=== PATIENT | female | born 2000 | race Caucasian/White ===

== ENCOUNTER 2020-08-21 15:01 | Emergency (ER) | payer BC, SELFPAY ==
[2020-08-21 15:09] VITALS: BP 94/69; PULSE 64; RESP 16; TEMP 36.8; O2SAT 99
--- NOTE | 2020-08-21 15:29 | ED.GENADULT ---
HPI - General Adult General Chief complaint: Unspecified Stated complaint: need fingernail pulled off Time Seen by Provider: 08/21/20 15:04 History of Present Illness HPI narrative: Broken finger nail. Broke the right middle finger nail reaching into her wallet last night. Broken below the nail bed. She tried to clip the rest and remove the nail, but had too much pain. Related Data Home Medications Medication Instructions Recorded Confirmed No Home Medications 08/21/20 08/21/20 Allergies Allergy/AdvReac Type Severity Reaction Status Date / Time No Known Allergies Allergy Verified 08/21/20 15:13 Review of Systems Review of Systems: All systems reviewed & are unremarkable except as noted in HPI and below PMFSH Social History Social History Smoking status: Never smoker Exam Const: General: healthy appearing, no acute distress and alert Orientation/consciousness: patient oriented x3 HENMT: Head: normal to inspection Neck: Neck: normal visual inspection Resp: Effort & Inspection: normal respiratory effort Cardio: Other: 2+ right radial Skin: Other: partial break of right middle finger nail below the nail bed Neuro: General: patient oriented x3 and moves all extremities Speech: normal speech Extrem: General: no edema Psych: Appearance: well kempt Affect: normal affect Course Vital Signs Vital signs: Vital Signs Temperature 36.8 C 08/21/20 15:09 Pulse Rate 64 08/21/20 15:09 Respiratory Rate 16 08/21/20 15:09 Blood Pressure 94/69 L 08/21/20 15:09 Pulse Oximetry 99 08/21/20 15:09 Temperature 36.8 C 08/21/20 15:09 Pulse Rate 64 08/21/20 15:09 Respiratory Rate 16 08/21/20 15:09 Blood Pressure 94/69 L 08/21/20 15:09 Pulse Oximetry 99 08/21/20 15:09 Procedures Other Procedure Procedure 1: Other Procedure: FInger tourniquet was placed on the right middle finger. 1 ml 1% lidocaine was injected under the nail bed. scissors were then used to complete removal of the distal finger nail. Medical Decision Making Vital Signs Vital Signs: Vital Signs Temperature 36.8 C 08/21/20 15:09 Pulse Rate 64 08/21/20 15:09 Respiratory Rate 16 08/21/20 15:09 Blood Pressure 94/69 L 08/21/20 15:09 Pulse Oximetry 99 08/21/20 15:09 Temperature 36.8 C 08/21/20 15:09 Pulse Rate 64 08/21/20 15:09 Respiratory Rate 16 08/21/20 15:09 Blood Pressure 94/69 L 08/21/20 15:09 Pulse Oximetry 99 08/21/20 15:09 Discharge Plan Discharge Clinical Impression: Nail avulsion, finger Patient Disposition: Home, Self-Care Condition: Stable Instructions: Nail Avulsion (ED) Prescriptions: No Action No Home Medications RF: 0 Follow-up/Referrals: PHYSICIAN NOT ON STAFF,NONSTAFF [Primary Care Provider] -
== END 2020-08-21 16:18 | disposition home or self-care (01) ==
PROVIDERS: Emergency Provider Emergency Medicine
DX: S61.302A Unspecified open wound of right middle finger with damage to nail, initial encounter (principal); W22.8XXA Striking against or struck by other objects, initial encounter
CPT/HCPCS: 11730; 11740; 99282

== ENCOUNTER 2022-07-07 11:37 | Emergency (ER) | payer BC, SELFPAY ==
--- NOTE | ~2022-07-07 | XR_ITS ---
EXAMINATION: XR ribs BI 3V w CXR 2V DATE: 07/07/2022 12:49 INDICATION: Chest injury and pain. TECHNIQUE: Frontal and lateral views of the chest and 2 views on 3 radiographs of the right ribs and 2 views on 3 radiographs of the of the left ribs were obtained. COMPARISON: None. FINDINGS: CHEST TWO VIEWS: A calcified right lung nodule is consistent with old granulomatous disease. No pleur al effusion or pneumothorax. The heart size is normal. BILATERAL RIBS: There is no rib fracture. IMPRESSION: 1. No rib fracture. Reviewed, dictated and finalized at location A. IMPRESSION: 1. No rib fracture.
[2022-07-07 11:40] VITALS: BP 127/89; PULSE 74; RESP 16; TEMP 36.4; O2SAT 100
--- NOTE | 2022-07-07 12:36 | ED.FALL ---
HPI - Fall General Chief Complaint: Fall <Clemencia Francis APRN - Last Filed: 07/07/22 14:08> Stated Complaint: fall <Clemencia Francis APRN - Last Filed: 07/07/22 14:08> Time Seen by Provider: 07/07/22 11:56 <Clemencia Francis APRN - Last Filed: 07/07/22 14:08> Source: patient <Clemencia Francis APRN - Last Filed: 07/07/22 14:08> Mode of arrival: ambulatory <Clemencia Francis APRN - Last Filed: 07/07/22 14:08> Limitations: no limitations <Clemencia Francis APRN - Last Filed: 07/07/22 14:08> History of Present Illness HPI Narrative: 21-year-old female presents today with complaints of right upper rib pain and left lower rib pain status post fall from a golf cart about 1 week ago. Patient states they were taking a turn when the golf cart tipped a little bit and she fell off landing in the dirt on her chest. Patient states that she thought that the pain would go away but it has not. Patient does lift heavy objects at work and had a hard time yesterday. Has only taken about 600 mg of ibuprofen once today with relief. Pain with inspiration to right upper and left lower chest wall. Pain with lifting heavy objects. Pain to right upper chest with movement of right shoulder. No obvious deformities noted. <Clemencia Francis APRN - Last Filed: 07/07/22 14:08> Onset (ago): week(s) (1) <Clemencia Francis APRN - Last Filed: 07/07/22 14:08> Symptoms prior to fall: none <Clemencia Francis APRN - Last Filed: 07/07/22 14:08> Related Data Allergies/Adverse Reactions: Allergies Allergy/AdvReac Type Severity Reaction Status Date / Time No Known Allergies Allergy Verified 07/07/22 11:47 <Clemencia Francis APRN - Last Filed: 07/07/22 14:08> Review of Systems Review of Systems: CONSTITUTIONAL: Denies fever, chills, or sweats. EYES: Denies visual changes, redness, or discharge. ENT: Denies rhinorrhea, congestion, sore throat, or otalgia. CARDIOVASCULAR: Right upper chest wall and left lower chest rib pain with certain movements and inspiration. Denies palpitations, or edema. RESPIRATORY: Denies cough or dyspnea. MUSCULOSKELETAL: Right shoulder pain. Denies back pain or myalgia. <Clemencia LettyJerad Penny Last Filed: 07/07/22 14:08> [facility] Social History Social History: Social History Smoking status: Never smoker <Clemencia LettyJerad Penny Last Filed: 07/07/22 14:08> Exam Const: General: cooperative, no acute distress, alert and awake <Clemencia Francis Last Filed: 07/07/22 14:08> Orientation/consciousness: oriented to person, oriented to place, oriented to time and patient oriented x3 <Clemencia A. Last Filed: 07/07/22 14:08> Neck: Neck: normal visual inspection, full ROM, no lymphadenopathy and trachea midline <Clemencia LettyJerad Last Filed: 07/07/22 14:08> Chest: Chest palpation & inspection: normal inspection of the chest and tenderness rib (Right upper below clavicle, left lower side rib) <Clemencia LettyJerad Penny Last Filed: 07/07/22 14:08> Resp: Effort & Inspection: normal respiratory effort and able to speak in complete sentences <Clemencia A. Last Filed: 07/07/22 14:08> Auscultation: clear to auscultation bilaterally <Clemencia A. Last Filed: 07/07/22 14:08> Cardio: Rate: regular rate <Clemencia Le Last Filed: 07/07/22 14:08> Rhythm: regular rhythm <Clemencia Francis Last Filed: 07/07/22 14:08> Heart sounds: S1 normal heart sound present and S2 normal heart sound present <Clemencia Francis Last Filed: 07/07/22 14:08> Skin: General skin exam: normal color and no rashes or lesions noted <Clemencia Francis APRN - Last Filed: 07/07/22 14:08> Neuro: General: oriented to person, oriented to place, oriented to time and patient oriented x3 <Clemencia Francis APRN - Last Filed: 07/07/22 14:08> Cranial nerves: Yes Equal, round and reactive pupils present <Clemencia Le
== END 2022-07-07 13:36 | disposition home or self-care (01) ==
PROVIDERS: Emergency Provider Nurse Practitioner Family
DX: S29.011A Strain of muscle and tendon of front wall of thorax, initial encounter (principal); V86.99XA Unspecified occupant of other special all-terrain or other off-road motor vehicle injured in nontraffic accident, initial encounter
CPT/HCPCS: 71046; 71110; 99283

== ENCOUNTER 2024-04-23 08:14 | Emergency (ER) | payer BC, SELFPAY ==
[2024-04-23 08:28] VITALS: BP 114/67; PULSE 69; RESP 18; TEMP 36.7; O2SAT 97
[2024-04-23 09:02] VITALS: O2SAT 98
[2024-04-23 09:21] LABS: Influenza A QL RT-PCR Negative (Negative); Influenza B QL RT-PCR Negative (Negative); RSV RNA, RT-PCR Negative (Negative); SARS-CoV-2 RNA PCR Negative (Negative)
--- NOTE | 2024-04-23 09:28 | ED.GENADULT ---
HPI - General Adult General Chief complaint: Upper Respiratory Infection Stated complaint: went to last week URI symptoms still not better Time Seen by Provider: 04/23/24 08:34 History of Present Illness HPI narrative: Patient is a 23-year-old female who presents ER with cold symptoms for 1 week. Has had negative viral testing and urgent care. She has sinus congestion sore throat or productive cough. Fevers and chills improved. No vomiting. Patient is concerned she could have pneumonia as she had is a child. Related Data Allergies Allergy/AdvReac Type Severity Reaction Status Date / Time No Known Allergies Allergy Verified 04/23/24 08:16 Review of Systems Constitutional: Constitutional: Reports no additional constitutional complaints ENT: Reports system reviewed and no additional complaints, except as documented Cardiovascular: Cardiovascular: Reports no additional cardiovascular complaints Respiratory: Respiratory: Reports no additional respiratory complaints PMF Past Medical History Medical History (Updated 04/23/24 @ 09:34 by Srinath Hunter MD) Healthy female adult Surgical History Surgical History (Updated 04/23/24 @ 09:29 by Srinath Hunter MD) History of appendectomy Social History Social History Smoking status: Never smoker Exam Narrative: GENERAL: Well-appearing, well-nourished, and in no acute distress. HEAD: Normocephalic, atraumatic. ENT: Mucous membranes moist. CHEST: Clear to auscultation. No respiratory distress. HEART: Regular rate and rhythm. Normal peripheral pulses. EXTREMITIES: Normal range of motion. No edema. NEURO: Alert and oriented x3. PSYCH: Normal mood and affect. Course Course Emergency Course: Patient resting comfortably. Informed results. Discharge home. Vital Signs Vital signs: Vital Signs Temperature 98.1 F 04/23/24 08:28 Pulse Rate 69 04/23/24 08:28 Respiratory Rate 18 04/23/24 08:28 Blood Pressure 114/67 04/23/24 08:28 Pulse Oximetry 97 04/23/24 08:28 Oxygen Delivery Room Air 04/23/24 08:28 Temperature 98.1 F 04/23/24 08:28 Pulse Rate 69 04/23/24 08:28 Respiratory Rate 18 04/23/24 08:28 Blood Pressure 114/67 04/23/24 08:28 Pulse Oximetry 98 04/23/24 09:02 Oxygen Delivery Room Air 04/23/24 09:02 Medical Decision Making Vital Signs Vital Signs: Vital Signs Temperature 98.1 F 04/23/24 08:28 Pulse Rate 69 04/23/24 08:28 Respiratory Rate 18 04/23/24 08:28 Blood Pressure 114/67 04/23/24 08:28 Pulse Oximetry 97 04/23/24 08:28 Oxygen Delivery Room Air 04/23/24 08:28 Temperature 98.1 F 04/23/24 08:28 Pulse Rate 69 04/23/24 08:28 Respiratory Rate 18 04/23/24 08:28 Blood Pressure 114/67 04/23/24 08:28 Pulse Oximetry 98 04/23/24 09:02 Oxygen Delivery Room Air 04/23/24 09:02 Lab Data Labs: Lab Results 04/23/24 Range/Units 08:39 Influenza A (RT-PCR) Negative (Negative) Influenza B (RT-PCR) Negative (Negative) RSV (RT-PCR) Negative (Negative) SARS-CoV-2 RNA (RT-PCR) Negative (Negative) Discharge Plan Discharge Clinical Impression: Acute viral syndrome Patient Disposition: Home, Self-Care Condition: Stable Instructions: Viral Syndrome (ED) Additional Instructions: As discussed you have a viral illness. Unfortunately there are no specific medications we can give you to make the illness end faster. Antibiotics do not work for viral illnesses. However, you can take Acetaminophen or Ibuprofen to help with fevers and pain. Stay well hydrated and rested. Return to the emergency department if your fevers and chills continue to worse after 5 days, if you develop worsening cough with thick sputum, or are unable to stay hydrated. Contact your primary care provider in the next few days for a re-evaluation and to make sure your symptoms are improving. Patient Language: Nigerien Prescriptions: No Action cyclobenzaprine 10 mg tablet 10 mg PO BID PRN (Reason: muscle spasm) Qty: 7 0RF Follow-up/Referrals: Sandra,LORAINE ReevesP [Primary Care Provider] - 1 Week
--- OUTSIDE RECORDS SUMMARY | 2024-04-23 11:15 | XMS_ITS | Referral Summary ---
Author Organization [facility] Address [address] [place] [address] Care Team Providers Care Global Implementation Manager Name Role Phone Unavailable Primary Care Provider Unavailabl e Source Comments [facility],non-owned Affiliates and Associated Physician Practices is amultiple site organization consisting of ambulatory clinics and hospital sitesin [place], [place]. This disclosure is being madepursuant to the Care Everywhere program and may not contain all information available regarding this patient. Last updated 17.[facility] [email or web address] Allergies No known active allergies Medications Be aware that medications may not be up to date on this document. Always verify current medications with the patient. No known medications Social History Tobacco Use Types Packs/Day Years Used Date Smoking Tobacco: Never Alcohol Use Standard Drinks/Week Comments No 0 (1 standard drink = 0.6 oz pur e alcohol) Sex and Gender Information Value Date Recorded Sex Assigned at Not on file Gender Identity Not on file Sexual Orientation Not on file Last Filed Vital Signs Vital Sign Reading Time Taken Comments Blood Pressure 103/46 04/14/2016 8:15 AM COBBLER UPPER Pulse 78 04/14/2016 8:15 AM COBBLER UPPER Temperature 37.1 C (98.8 F) 04/14/2016 8:15 AM COBBLER UPPER Respiratory Rate 16 04/14/2016 8:15 AM COBBLER UPPER Oxygen Saturation 98% 04/14/2016 4:45 AM COBBLER UPPER Inhaled Oxygen Concentration - - Weight 66.8 kg (147 lb 4.3 oz) 04/27/2016 10:19 AM COBBLER UPPER Height 165.5 cm (5' 5.16 ) 04/12/2016 10:[address] Body Mass Index - - Functional Status Functional Status Response Date of Assess ment Is person deaf or have serious hearing difficult y? No 04/13/2016 Is person blind or have serious difficulty seein g? No 04/13/2016 Does person have serious dif ficulty walking/climbing stairs? No 04/13/2016 Does person have difficulty dressing/bathing? No 04/13/2016 Does person have difficulty doing errands alone? No 04/13/2016 Cognitive Status Response Date of Assessm ent Does person have difficulty concentrating/remembering/making decisions? No 04/13/2016 Plan of Treatment Not on file Advance Directives * Full Code (Latest Code Status on File) Date Activated Date Inactivated Comments 04/12/2016 11:43 PM 04/14/2016 1:49 PM
--- OUTSIDE RECORDS SUMMARY | 2024-04-23 11:15 | XMS_ITS | Continuity of Care Document ---
Author Organization [facility] Address [address] [place] [address] Phone Care Team Providers Care Adding Machine Servicer Name Role Phone Administrative, Provider Unavailable Unavail able Allergies, Adverse Reactions, Alerts Substance Reaction Status Criticality No Known Allergies Active No Inform ation Medications Medication Instructions Dosage Effective Dates (start - stop) Status Comments ibuprofen 400 mg tablet - Active Procedures Procedure Date Office/outpatient visit,[facility] 2013 Heel Cups Each Advance Directives Directive Yes / No Effective Date File Name No Information Encounters Encounter Description Practice Location Reason(s) For Visit Diagnoses Date Provider Providers Copied on Encounter [facility], [address], [id number], tel:[phone] [facility] No Information 4 Administrati ve Provider. [address], [address], [place], [place], [id number], [place]. tel:[phone] Office/outpa tient visit,[facility], [address] [address], [place], [place], [id number], [place] tel:[phone] [facility] ankle pain on the left greater than the right (chief complaint) Achilles tendinitisTend onitis of ankle 4 Ayaka Salinas. [facility] [address], [address], [place], [place], [id number], [place]. tel:[phone] Family History Family Member Type Diagnosis Age At Onset Maternal grandfather Problem (finding) Heart trouble Maternal grandmother Problem (finding) hypertension Problem (finding) Family history of hyper tension Maternal grandmother Problem (finding) Heart trouble Maternal grandfather Problem (finding) Diabetes mellit us Payers Payer name Insurance type Covered libertarian ID Saurabh self(s) [facility] [id number] Social History Type Description Quantity Date Captured Comments Alcohol Use Details Unknown Caffeine Use Details Unknown Tobacco Use Status No Information Smoking Status No Information Sex Female Chief Complaint And Reason For Visit No Information Reason For Referral Reason For Referral No Information Plan Of Treatment Date Type Action Status Patient Education Heel Pain: After Your Liliana winter's Visit completed History Of Present Illness Encounter Date Complaint History Of Prese nt Illness ankle pain on the le ft greater than the right Ms Crawford is a 13 year 4 month old female who complains of ankle pain on the left greater than the right. She presents with pain on the left greater than the right. She states that the symptoms have been acute non-traumatic and began on 12/13/2013. Patient states that she does not have a known injury but noticed the onset of pain after she started playing basketball. The symptoms occur constantly. The problem is unchanged. Currently the patient states that the symptoms are moderate. The pain is described as dull and aching. The symptoms occur with activity. She also states that she feels tightness first thing in the morning. The patient indicates that the pain is located in the calcaneous, lateral ankle, achilles region on the left greater than the right. She rates her worst pain as 7/10. The pain does not radiate. The symptoms are aggravated by running. Stephenie states that the symptoms are relieved by no specific activity. In addition to ankle pain on the left greater than the right the patient is also experiencing limping, night pain, popping and stiffness. Pertinent negatives include swelling and bruising. Patient states that she has not had any prior diagnostic studies to date. Prior NSAIDs include ibuprofen. Patient has used heel cups in the past and has started to use these again. There were previous episodes. 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 Functional Status Date Functional Assessmen t No Information Instructions Date Instruction Additional Infor matbrittney No Information Assessments Type Assessment Date No Information Patient Care Teams Name Effective Dates (start - stop) Status Members No Information
--- OUTSIDE RECORDS SUMMARY | 2024-04-23 11:15 | XMS_ITS | Referral Summary ---
Author Organization [facility] [address] [place] [address] Address [address] [place] [address] Care Team Providers Care Auto Design Detailer Name Role Phone Margaret Flores NP Primary Care Provider [phone] Encounters Date Type Department Care Team Description 04/22/2024 E-Visit [facility] Care at [address] [phone] Margaret Flores NP Antibiotic 04/18/2024 1:57 PM TECHNICAL SPECIALIST - 04/18/2024 11:59 PM TECHNICAL SPECIALIST Hospital Encounter [address] [phone] Flu-like symptoms Discharge Disposition: Discharge to home or self care 04/18/2024 2:15 PM TECHNICAL SPECIALIST Office Visit [facility] Care at [address] [phone] Brandy Hoffmann NP Flu-like symptoms (Primary Dx) 04/18/2024 Nurse Triage [facility] Care at [address] [phone] Margaret Flores NP 03/20/2024 3:30 PM TECHNICAL SPECIALIST - 03/20/2024 11:59 PM TECHNICAL SPECIALIST Hospital Encounter [address] [address] Cervical cancer screening Discharge Disposition: Discharge to home or self care 03/20/2024 3:00 PM TECHNICAL SPECIALIST Office Visit [facility] Care at [address] [phone] Margaret Flores NP Cervical cancer screening (Primary Dx) 01/23/2024 Patient Self-Triage [facility] [address] [place] [address] Mychart, Generic Provider 01/23/2024 Patient Self-Triage [facility] [address] [place] [address] Mychart, Generic Provider from Last 3 Months Allergies No known active allergies Medications No known medications Active Problems Problem Noted Date Diagnosed Date Cervical cancer screening 03/20/2024 Assessment & Plan (03/20/2024 3:42 PM TECHNICAL SPECIALIST): Normal female exam: -Pap smear every .3 yearas -Influenza vaccine every year -F/u in 1 year for physical or sooner if needed - discussed: none -General Recommendations: -Healthy, low fat diet. Avoiding junk food/fast food. -30 minutes of exercise most days of the week. Increase to 45 minutes for weight loss. Annual physical exam 12/05/2023 Assessment & Plan (12/05/2023 1:58 PM CDT): I have reviewed patient's history, family history, current med list and plan of care. Reviewed previous labs. She has had a CBC and a CMP within the last year. Discussed relevant follow up testing and specialty follow-up needed. Recommended influenza vaccine. Briefly discussed HPV vaccine and meningococcal vaccine. Will have her follow-up in 1-2 months at her convenience for Pap and well-woman exam Resolved Problems Problem Noted Date Diagnosed Date Resolved Date Polydipsia 05/14/2022 12/05/2023 JOEL (generalized anxiety disorder) 10/09/2021 12/05/2023 Panic attacks 10/09/2021 12/05/2023 Immunizations Immunization Administration Dates Next Due Influenza, Unspecified 12/05/2023(Deferr ed: Patient Refused),03/07/2023(Deferred: Patient Refused),05/14/2022(Deferred: Patient Refused),03/31/2005 MMR 03/31/2005 Meningococcal Polysaccharide (Menomune) 08/08/2014 Tdap 11/10/2022,08/23/2011 Social History Tobacco Use Types Packs/Day Years Used Date Smoking Tobacco: Never Smokeless Tobacco: Never Alcohol Use Standard Drinks/Week Comments Never 0 (1 standard drink = 0.6 oz pur e alcohol) AUDIT-C Answer Date Recorded Q1: How often do you have a drink containing alc ohol? Monthly or less 05/14/2022 Q2: How many drinks containi ng alcohol do you have on a typical day when you are drinking? 1 or 2 05/14/2022 Q3: How often do you have si x or more drinks on one occasion? Never 05/14/2022 PHQ-2 Answer Date Recorded PHQ-2 Total Score (If total score is 3 or more points, staff should administer the PHQ-9) 0 12/05/2023 Personal Safety Answer Date Recorded Getting School Help Needed Denies 04/16 Comments No Sex and Gender Information Value Date Recorded Sex Assigned at Not on file Legal Sex Female 11:02 PM TECHNICAL SPECIALIST Gender Identity Not on file Sexual Orientation Not on file Last Filed Vital Signs Vital Sign Reading Time Taken Comments Blood Pressure 116/80 04/18/2024 2:27 PM TECHNICAL SPECIALIST Pulse 88 04/18/2024 2:27 PM TECHNICAL SPECIALIST Temperature 36.8 C (98.3 F) 04/18/2024 2:27 PM TECHNICAL SPECIALIST Respiratory Rate 18 04/18/2024 2:27 PM TECHNICAL SPECIALIST Oxygen Saturation 98% 04/18/2024 2:27 PM TECHNICAL SPECIALIST Inhaled Oxygen Concentration - - Weight 71.8 kg (158 lb 3.2 oz) 04/18/2024 2:27 P M TECHNICAL SPECIALIST Height 167.6 cm (5' 5.98 ) 04/18/2024 2:27 PM CS T Body Mass Index 25.55 04/18/2024 2:27 PM TECHNICAL SPECIALIST Plan of Treatment Not on file Procedures Procedure Name Priority Date/Time Associated Diagnosis Comments POCT RAPID STREP Routine 04/18/2024 2:29 PM TECHNICAL SPECIALIST Flu-like symptoms POC INFLUENZA A/B, COVID-19 ANTIGEN Routine 04/18/2024 2:29 PM TECHNICAL SPECIALIST Flu-like symptoms THROAT CULTURE Routine 04/18/2024 1:57 PM TECHNICAL SPECIALIST Flu-like symptoms INFLUENZA A/B, RSV, AND COVID-19 PCR Routine 04/18/2024 1:57 PM TECHNICAL SPECIALIST Flu-like symptoms THINPREP PROCESSING (MOLECULAR COMPONENT) Routine 03/20/2024 3:30 PM TECHNICAL SPECIALIST Cervical cancer screening N. GONORRHOEAE/C. TRACHOMATIS AMPLIFICATION Routine 03/20/2024 3:30 PM TECHNICAL SPECIALIST Cervical cancer screening PAP WITH REFLEX TO HIGH RISK HPV Routine 03/20/2024 8:28 AM TECHNICAL SPECIALIST Cervical cancer screening from Last 3 Months Results * POC Influenza A/B, COVID-19 antigen (04/18/2024 2:29 PM TECHNICAL SPECIALIST) Pathologist [facility] Influenza A Ag, POC Negative Negative [facility] Influenza B Ag, POC Negative Negative [facility] COVID-19 Ag POC Presumptive Negative Presumptive Negative, Invalid [facility] Nasal 04/18/2024 2:29 PM TECHNICAL SPECIALIST Brandy Hoffmann [employer] TECHNICIAN POINT OF CARE TEST ORDERAB LES Final Result Performing Organization Address City/State/[facility] Co de Phone Number [facility] [address] [place] [address] * POCT rapid strep A (04/18/2024 2:29 PM TECHNICAL SPECIALIST) Pathologist [facility] Rapid Strep A, POC Negative Negative Swab 04/18/2024 2:29 PM TECHNICAL SPECIALIST Brandy Hoffmann [employer] TECHNICIAN POINT OF CARE TEST ORDERAB LES Final Result * Influenza A/B, RSV, and COVID-19 PCR Nasopharyngeal (04/18/2024 1:57 PM TECHNICAL SPECIALIST) Pathologist [facility] COVID-19 RNA Negative Negative [facility] Influenza A RNA Negative Negative [facility] Influenza B RNA Negative Negative [facility] RSV RNA Negative Negative [facility] Comment: Interpretive data: Testing performed by [facility]. This test is performed using the [employer] Xpert Xpress CoV-2/Flu/RSV plus assay. This is a multiplex, real-time reverse transcriptase PCR assay intended for the qualitative detection of nucleic acid from SARS-CoV-2, influenza A, influenza B, and respiratory syncytial virus. This assay has been cleared by the [place] Food and Drug administration. The performance characteristics have been verified by the [facility]. Results must be considered in the clinical context, and a negative result does not rule out infection. Interpretive Data last revised 2023 Nasopharyngeal 04/18/2024 1: 57 PM TECHNICAL SPECIALIST 04/18/2024 6:15 PM TECHNICAL SPECIALIST Narrative [facility] - 04/18/2024 8:34 PM TECHNICAL SPECIALIST Is the Patient experiencing symptoms consistent with COVID?->Yes Reason for testing?->Symptomatic Is the patient experiencing any symptoms consistent with COVID (eg. Fever, cough, shortness of breath)?->Yes Brandy Hoffmann NP LAB MICROBIOLOGY - GENERAL ORDERABLES Final Result Performing Organization Address [facility] Co de Phone Number [facility] [address] [place] [address] [place] * Throat culture Throat (04/18/2024 1:57 PM TECHNICAL SPECIALIST) Pathologist [facility] Report Final Report: No growth of pathogens. Comment:Testing performed by : [facility], [address] [place]., [address] Throat 04/18/2024 1:57 PM TECHNICAL SPECIALIST 04/18/2024 7:55 PM TECHNICAL SPECIALIST Narrative [facility] 04/19/2024 3:52 PM TECHNICAL SPECIALIST Testing performed by [facility] Microbiology Laboratory ([phone]). Brandy Hoffmann NP LAB MICROBIOLOGY - GENERAL ORDERABLES Final Result Performing Organization Address City/[facility]/ZIP Co de Phone Number [facility] [address] [place] [address] * ThinPrep processing (Molecular component) (03/20/2024 3:30 PM TECHNICAL SPECIALIST) Pathologist [facility] ThinPrep processing (Molecular component) Specimen received for processing. [facility] Comment:Testing performed by : [facility], [address] [place]., [address] Endocervical 03/20/2024 3:30 PM TECHNICAL SPECIALIST 03/21/2024 5:33 PM TECHNICAL SPECIALIST Margaret Flores NP LAB BODY FLUIDS AND STOOLS ORDER JOESPH Final Result Performing Organization Address City/[facility] Co de Phone Number [facility] [address] [employer] [place] [address] BJ * N. gonorrhoeae/C. trachomatis Amplification Thin prep-Endocervical (03/20/2024 3:30 PM TECHNICAL SPECIALIST) [facility] C. trachomatis Not Detected [facility] Comment:Testing performed by : [facility], [address] [place]., [address] N. gonorrhoeae Not Detected [facility] Comment: Interpretive Data This assay detects Chlamydia trachomatis and Neisseria gonorrhoeae by nucleic acid amplification testing (NAAT). This assay has been cleared by the [place] Food and Drug administration. The performance characteristics of this test have been verified by the [facility] Molecular Infectious Disease laboratory. The performance characteristics of this test have not been evaluated in individuals less than 14 years of age. Current Interpretive Data was last revised on 2023. Testing performed by: [facility], [address] [place]., [address] Thin prep-Endocervica l (None) 03/20/2024 3:30 PM TECHNICAL SPECIALIST 03/21/2024 5:33 PM TECHNICAL SPECIALIST Margaret Flores NP LAB MICROBIOLOGY - GENERAL ORDER JOESPH Final Result Performing Organization Address City/[facility]/ZIP Co de Phone Number [facility] [address] [place] [address] BJ * Pap with reflex to High Risk HPV and Genotyping (Cytology Component) (03/20/2024 8:28 AM TECHNICAL SPECIALIST) Endocervical (Pap test) 03/20/2024 8:28 AM TECHNICAL SPECIALIST 03/20/2024 8:28 AM TECHNICAL SPECIALIST Narrative PATHOLOGY [facility] - 03/22/2024 12:31 PM TECHNICAL SPECIALIST [facility] Department of Pathology [address] [place] [address] Final Report Note to Patients: This report may contain a detailed description of human tissue sent by a health care provider to the laboratory for pathologic evaluation. The content of this report is essential for diagnosis and may provide important critical findings. This information may be unfamiliar to patients to review without a medical professional present. It is advised that the patient review this report in the presence of a health care provider who can answer questions and explain the details. Patient Name: STEPHENIE CRAWFORD Address: [address] [place] [address] Gender: F : 2000 (Age: 23) Service: Location: N : [id number] [place] [facility] [employer] [facility] #: [id number] Patient Type: SPECIMEN Taken: 03/20/2024 Received: 03/20/2024 Accessioned:: 03/21/2024 Reported: 03/22/2024 Physician(s): Margaret Flores, N.Case. Margaret Flores, N.P. Diagnosis: SOURCE OF SPECIMEN Imaged Thinprep Pap Test w/ Reflex HPV - Investment Underwriter Cytologic Material: STATEMENT OF ADEQUACY - Specimen satisfactory for interpretation; endocervical/transformation zone component absent or insufficient GENERAL CATEGORIZATION: - Negative for intraepithelial lesion or malignancy FABBY Pelaez(ASCP) Report Electronically Reviewed and Signed Out By FABBY Pelaez(ASCP) 03/22/2024 12:31:53Specimen(s) Received: A: Imaged Thinprep Pap Test w/ Reflex HPV - Investment Underwriter Cytologic Material Clinical History: The Pap test is a screening test used to aid in the detection of cervical cancer and its precursors. It should not be the sole means by which malignant and premalignant lesions are diagnosed. Both false negative and false positive results may occur. It also has poor sensitivity for the detection of endometrial lesions and should not be used to evaluate suspected endometrial abnormalities. For these reasons it is most important to obtain Pap tests at regular intervals. The performance characteristics of some immunohistochemical stains, fluorescence in-situ hybridization tests and immunophenotyping by flow cytometry cited in this report (if any) were determined by the Surgical Pathology Department at [facility] as part of an ongoing head of quality program and in compliance with federally mandated regulations drawn from the Clinical Laboratory Improvement Act of 1988 (CLIA '88). Some of these tests rely on the use of analyte specific reagents and are subject to specific labeling requirements by the [place] Food and Drug Administration. Such diagnostic tests may only be performed in a facility that is certified by the Department of Health and Human Services as a high complexity laboratory under CLIA '88. The FDA has determined that such clearance or approval is not necessary. This test is used for clinical purposes. It should not be regarded as investigational or for research. Nevertheless, federal rules concerning the medical use of analyte specific reagents require that the following disclaimer be attached to the report: This test was developed and its performance characteristics determined by the Surgical Pathology Department [facility]. It has not been cleared or approved by the [place]. [place]. Food and Drug Administration. Margaret Flores NP LAB CYTOLOGY ORDERABLES Final Re [facility] [address] [place] [address] from Last 3 Months Insurance [facility] [place] [address] COUNTS INCLUDE 234 BEDS AT THE [facility] COUNTS INCLUDE 234 BEDS AT THE [facility] Care Teams Auto Design Detailer Relationship Specialty Start Date End Date Margaret Flores NP PCP - General Family Medicine 12/05/23
--- OUTSIDE RECORDS SUMMARY | 2024-04-23 11:15 | XMS_ITS | Patient Health Summary ---
Author Organization [facility] Address [address] [place] [address] Care Team Providers Care Fork Operator Name Role Phone Unavailable Primary Care Provider Unavailabl e Note from [facility],non-owned Affiliates and Associated Physician Practices is amultiple site organization consisting of ambulatory clinics and hospital sitesin [place], [place], [place] and [place]. This disclosure is being madepursuant to the Care Everywhere program and may not contain all information available regarding this patient. Last updated 17.[facility] Allergies No known active allergies Medications Be [...] Comments Blood Pressure 103/46 04/14/2016 8:15 AM DICE MAKER Pulse 78 04/14/2016 8:15 AM DICE MAKER Temperature 37.1 C (98.8 F) 04/14/2016 8:15 AM DICE MAKER Respiratory Rate 16 04/14/2016 8:15 AM DICE MAKER Oxygen Saturation 98% 04/14/2016 4:45 AM DICE MAKER Inhaled Oxygen Concentration - - Weight 66.8 kg (147 lb 4.3 oz) 04/27/2016 10:19 AM DICE MAKER Height 165.5 cm (5' 5.16 ) 04/12/2016 10:[address] Body Mass Index - - Procedures * PATHOLOGY TISSUE EXAM (STL)(Performed 04/13/2016) * LAPAROSCOPIC APPENDECTOMY (PEDIATRIC)(Performed 04/13/2016) Performed for Laparoscopic Appendectomy * HCG URINE QUALITATIVE(Performed 04/13/2016) * SLIDE SCAN HEMATOLOGY(Performed 04/13/2016) * CBC W AUTO DIFFERENTIAL(Performed 04/13/2016) * CBC W AUTO DIFFERENTIAL(Performed 04/12/2016) * CT OUTSIDE CONSULTATION(Performed 04/12/2016) Performed for RLQ abdominal pain Results * GROSS + MICRO EXAM (STL) (04/13/2016 5:12 PM DICE MAKER) Case Report Surgical Pathology Report Case: [id number] Authorizing Provider: Shari Paris MD Collected: 04/13/2016 05:12 PM Ordering Location: INTRA Received: 04/14/2016 07:42 AM Pathologist: Lele Fried MD Specimen: Appendix, appendix 04/16/2016 1:58 PM [facility] Final Diagnosis APPENDIX, APPENDECTOMY: - ACUTE APPENDICITIS 04/16/2016 1:58 PM [facility] Clinical History The patient is a 15-year-old girl who underwent laparoscopic appendectomy. 04/16/2016 1:58 PM [facility] Gross Description Submitted fixed in formalin in one container for gross and microscopic examination, labeled with the patient's name Stephenie Crawford, and appendix, is a 5.5 x 1 x 1 cm in greatest dimension vermiform appendix with attached mesoappendix, 5 x 2 x 1 cm. The external surface is avila-bosch and mildly congested. The proximal appendix and mesentery are stapled. The appendiceal lumen is patent and contains a minimal amount of red mucoid material. The appendiceal wall is 0.4 cm in thickness. The appendiceal lumen is 0.1 to 0.3 cm in diameter. The specimen is serially sectioned and entirely submitted in cassettes A1 through A4. (CT/ns) 04/16/2016 1:58 PM [facility] Microscopic Description 4 H&E Sections of the appendix reveal focal mucosal ulceration with acute transmural inflammation. 04/16/2016 1:58 PM [facility] Disclaimer The performance characteristics of all immunohistochemical and indirect immunofluorescence stains (if any) cited in this report were determined by the Histopathology Laboratory of [facility]. Some of these tests were developed by our own laboratory and have not been cleared or approved by the US Food and Drug Administration (FDA). The FDA does not require this test to go through premarket FDA review. These tests are used for clinical purposes. They should not be regarded as investigational or for research. This laboratory is certified under the Clinical Laboratory Improvement Amendments (CLIA) as qualified to perform high complexity clinical laboratory testing. This case has been personally reviewed and interpreted by the attending (teaching) pathologist. 04/16/2016 1:58 PM [facility] Embedded Images 04/16/2016 1:58 PM [facility] Pathology/Cytolo gy ENTIRE APPENDIX / Unknown 04/13/2016 5:12 PM DICE MAKER 04/14/2016 7:42 AM DICE MAKER Shari Paris MD LAB - PATHOLOGY/CY TOLOGY ORDERABLES Performing Organization Address [facility] Co de Phone Number [facility] [address] [place] [phone] * HCG URINE QUALITATIVE (04/13/2016 3:42 PM DICE MAKER) hCG Qualitative Urine Negative Negative 04/13/2016 4:26 PM [facility] Urine URINE / Unknown 04/13/2016 3 :42 PM DICE MAKER 04/13/2016 3:57 PM DICE MAKER Nancy Cespedes APRN-PUBLICATIONS WRITER LAB - URINALYSIS O RDERABLES Performing Organization Address [facility] Co de Phone Number [facility] [address] [place] [address] * (ABNORMAL) SLIDE SCAN HEMATOLOGY (04/13/2016 4:58 AM DICE MAKER) Platelet Estimation Adequate platelets Normal, Adequate platelets 04/13/2016 6:19 AM [facility] Anisocytosis 1+(A) None 04/13/2016 6:19 AM [facility] Poikilocytosis 1+(A) None 04/13/2016 6:19 AM [facility] Blood BLOOD SPECIMEN / Unknown 04/13/2016 4:58 AM DICE MAKER 04/13/2016 5:08 AM [facility] Erick Conde MD LAB - HEMATOLOGY O RDERABLES Performing Organization Address City/State/[facility] Co de Phone Number [facility] [address] [place] [address] * (ABNORMAL) CBC W AUTO DIFFERENTIAL (04/13/2016 4:58 AM [facility]) Only the most recent of2 resultswithin the time period is included. WBC 4.8 4.5 - 14.5 x10E9/L 04/13/2016 5:22 AM [facility] WBC Corrected x10E9/L 04/13/2016 5:22 AM [facility] RBC 3.79(L) 4.10 - 5.10 x10E12/L 04/13/2016 5:22 AM [facility] Hemoglobin 11.4(L) 12.0 - 16.0 gm/dL 04/13/2016 5:22 AM [facility] Hematocrit 33.0(L) 36.0 - 47.0 % 04/13/2016 5:22 AM [facility] MCV 87.1 78.0 - 98.0 fl 04/13/2016 5:22 AM [facility] MCH 30.1 25.0 - 35.0 pg 04/13/2016 5:22 AM [facility] MCHC 34.5 31.0 - 37.0 gm/dL 04/13/2016 5:22 AM [facility] Platelet Count 162 100 - 400 x10E9/L 04/13/2016 5:22 AM [facility] RDW-CV 12.7 11.5 - 14.0 % 04/13/2016 5:22 AM [facility] MPV 10.7(H) 6.0 - 9.5 fl 04/13/2016 5:22 AM [facility] Neutrophils % 45.2 24.0 - 66.0 % 04/13/2016 5:22 AM [facility] Lymphocytes % 44.4 22.0 - 61.0 % 04/13/2016 5:22 AM [facility] Monocytes % 7.5 3.0 - 15.0 % 04/13/2016 5:22 AM [facility] Eosinophils % 2.1 0.0 - 10.0 % 04/13/2016 5:22 AM [facility] Basophils % 0.4 % 04/13/2016 5:22 AM [facility] Immature Granulocytes 0.4 % 04/13/2016 5:22 AM [facility] Neutrophil Absolute 2.17 x10E9/L 04/13/2016 5:22 AM [facility] Lymphocytes Absolute 2.13 x10E9/L 04/13/2016 5:22 AM [facility] Monocytes Absolute 0.36 x10E9/L 04/13/2016 5:22 AM [facility] Eosinophils Absolute 0.10 x10E9/L 04/13/2016 5:22 AM [facility] Basophils Absolute 0.02 x10E9/L 04/13/2016 5:22 AM [facility] Immature Granulocytes Absolute 0.02 x10E9/L 04/13/2016 5:22 AM [facility] nRBC Auto 0 /100 WBC 04/13/2016 5:22 AM [facility] Hematology Reflex Status Peripheral Slide Scan to follow 04/13/2016 5:22 AM [facility] Blood BLOOD SPECIMEN / Unknown 04/13/2016 4:58 AM DICE MAKER 04/13/2016 5:08 AM [facility] Erick Conde MD LAB - HEMATOLOGY O RDERABLES Performing Organization Address City/State/[facility] Co mo Phone Number [facility] [address] [place] [address] * CT OUTSIDE CONSULTATION (04/12/2016 10:52 PM DICE MAKER) Anatomical Region Laterality Modality Computed Tomogra phy 04/13/2016 8:17 AM DICE MAKER Impressions 04/13/2016 8:49 AM [facility] Partially distended fluid-filled appendix with minimal periappendiceal fat stranding and without evidence of perforation. These findings are suggestive of early acute appendicitis. Preliminary findings were discussed with Dr. Escalera by Dr. Cruz on August 24, 2016 at 2305 hours. The findings, conclusions and recommendations within this report do not replace the initial findings, conclusions and recommendations made at the facility where the study was performed based upon the imaging and clinical condition at that time. Comparison with the prior report and clinical history is necessary. The provided images may or may not represent the [place] source data set and thus may contain changes which may lower the sensitivity in the second opinion interpretation. Dictated by Charbel Jiménez MD. ([employer] Pilot). I, Jessie Flowers, have personally reviewed the images and I agree with this report. Narrative 04/13/2016 8:49 AM DICE MAKER EXAMINATION: RADIOLOGY CONSULTATION ON OUTSIDE IMAGING STUDY STUDY INITIALLY PERFORMED ON April 12, 2016, 2009 hours AT [facility]. . TYPE OF STUDY: A total of 250 images were provided at the time of this interpretation. The study consists of a CT study of the abdomen and pelvis with contrast. The protocol was adequate to answer the clinical question. However, only [address] slices are provided for review. There are no thin axial CT slices. This, therefore, limits the interpretation of the examination. The outside final report was not provided at the time of this second opinion. DATE OF CONSULTATION: April 12, 2016 at 2249 hours REASON FOR CONSULTATION: 15-year-old female with right lower quadrant pain concerning for appendicitis. FINDINGS: No prior study is available for comparison. The lung bases are clear. The visible heart is normal in size. The liver, gallbladder, pancreas, spleen, adrenal glands, and kidneys are normal. No intrahepatic or extrahepatic biliary dilatation is seen. There is no hydronephrosis. The abdominal vasculature is within normal limits. A portion of the appendix is fluid-filled and mildly distended measuring up to 1.1 cm and diameter. Minimal periappendiceal fat stranding is seen. No adjacent free fluid is seen. Prominent lymph nodes are present in the right lower quadrant measuring up to 9 x 7 mm (image 59, series 2). There is no evidence of free intraperitoneal air or fluid collections in the right lower quadrant to suggest perforation. The remaining portions of the intestines are normal in caliber and position. Minimal stool is seen in the colon. The bowel gas pattern is nonobstructive. The urinary bladder is nondistended. The uterus is present. A small volume of free fluid is present in the pelvis measuring simple fluid attenuation, which may be physiologic for the patient's age and gender. The adnexal structures are within normal limits. The osseous structures are intact and well aligned. Schmorl's nodes are visible in portions of the thoracolumbar spine. Procedure Note Jessie Flowers MD - 04/13/2016 EXAMINATION: RADIOLOGY CONSULTATION ON OUTSIDE IMAGING STUDY STUDY INITIALLY PERFORMED ON April 12, 2016, 2009 hours AT [facility]. . TYPE OF STUDY: A total of 250 images were provided at the time of this interpretation. The study consists of a CT study of the abdomen and pelvis with contrast. The protocol was adequate to answer the clinical question. However, only [address] slices are provided for review. There are no thin axial CT slices. This, therefore, limits the interpretation of the examination. The outside final report was not provided at the time of this second opinion. DATE OF CONSULTATION: April 12, 2016 at 2249 hours REASON FOR CONSULTATION: 15-year-old female with right lower quadrant pain concerning for appendicitis. FINDINGS: No prior study is available for comparison. The lung bases are clear. The visible heart is normal in size. The liver, gallbladder, pancreas, spleen, adrenal glands, and kidneys are normal. No intrahepatic or extrahepatic biliary dilatation is seen. There is no hydronephrosis. The abdominal vasculature is within normal limits. A portion of the appendix is fluid-filled and mildly distended measuring up to 1.1 cm and diameter. Minimal periappendiceal fat stranding is seen. No adjacent free fluid is seen. Prominent lymph nodes are present in the right lower quadrant measuring up to 9 x 7 mm (image 59, series 2). There is no evidence of free intraperitoneal air or fluid collections in the right lower quadrant to suggest perforation. The remaining portions of the intestines are normal in caliber and position. Minimal stool is seen in the colon. The bowel gas pattern is nonobstructive. The urinary bladder is nondistended. The uterus is present. A small volume of free fluid is present in the pelvis measuring simple fluid attenuation, which may be physiologic for the patient's age and gender. The adnexal structures are within normal limits. The osseous structures are intact and well aligned. Schmorl's nodes are visible in portions of the thoracolumbar spine. IMPRESSION Partially distended fluid-filled appendix with minimal periappendiceal fat stranding and without evidence of perforation. These findings are suggestive of early acute appendicitis. Preliminary findings were discussed with Dr. Escalera by Dr. Cruz on August 24, 2016 at 2305 hours. The findings, conclusions and recommendations within this report do not replace the initial findings, conclusions and recommendations made at the facility where the study was performed based upon the imaging and clinical condition at that time. Comparison with the prior report and clinical history is necessary. The provided images may or may not represent the [place] source data set and thus may contain changes which may lower the sensitivity in the second opinion interpretation. Dictated by Charbel Jiménez MD. ([employer] Pilot). I, Jessie Flowers, have personally reviewed the images and I agree with this report. Ramona Escalera MD CT ORDERABLES
--- OUTSIDE RECORDS SUMMARY | 2024-04-23 11:15 | XMS_ITS | Encounter Summary ---
Author Organization [facility] Healthcare Address [address] [place] [address] Care Team Providers Care District Sales Manager Name Role Phone Margaret Flores WINDOWS APPLICATION PACKAGER Primary Care Provider Encounter Details Date Type Department Care Team (Late st Contact Info) Description 04/22/2024 E-Visit [facility] Medical Group Primary Care at [place] [address] [place] [address] Margaret Flores NP [address] [place] [address] [address] [place] [address] Antibiotic Social History Tobacco Use Types Packs/Day Years [...] on file Legal Sex Female 11:02 PM STAMP MOUNTER Gender Identity Not on file Sexual Orientation Not on file documented as of this encounter Progress Notes * Margaret Flores NP - 04/23/2024 7:12 AM CST [employer] Message Note This patient gave consent for this Medical Advice Message and is aware that it may result in a billto their insurance, as well as the possibility of receiving a bill. They are an established patientbut are not seeking information exclusively about a problem treated during an in-person or video visit in the last seven days. I did not recommend an in-person or video visit within the next seven days of my reply. See the [employer] message reply for my assessment and plan. I spent a total of 10 minutes reviewing the patient???s prior medical records and current request for medical advice, prescribing medications or ordering tests (if applicable), replying to the patient and documenting this encounter. Margaret Flores NP P MOUNTER documented in this encounter Plan of Treatment Not on file documented as of this encounter Visit Diagnoses Diagnosis Acute non-recurrent sinusitis, unspecified location- Primary documented in this encounter Care Teams District Sales Manager Relationship Specialty Start Date End Date Margaret Flores NP PCP - General Family Medicine 12/05/23 documented as of this encounter
--- OUTSIDE RECORDS SUMMARY | 2024-04-23 11:15 | XMS_ITS | Clinical Summary ---
Author Organization [facility] Address [address] [place] [address] Phone Care Team Providers Care Disc Jockey Name Role Phone Gary Willoughby MD Primary Care Provider [phone] Social History Tobacco Use Types Packs/Day Years Used Date Smoking Tobacco: Never Assessed Comments Unknown Sex and Gender Information Value Date Recorded Sex Assigned at Not on file Legal Sex Female 10:07 PM CDT Gender Identity Not on file Sexual Orientation Not on file Plan of Treatment Health Maintenance Due Date Last Done Comments CHLAMYDIA SCREENING (ANNUAL) 11-24 YEARS 07/24/2011 HPV VACCINES (1 - 3-dose series) 07/24/2015 DTAP/TDAP/TD VACCINES (1 - Tdap) 07/24/2019 HEPATITIS B VACCINES (1 of 3 - 19+ 3-dose series) 07/05 CERVICAL CANCER SCREENING 2021 INFLUENZA VACCINE (#1) 2023 Care Teams Disc Jockey Relationship Specialty Start Date End Date Gary Willoughby MD PCP - General Family Practice 09/02/20
--- OUTSIDE RECORDS SUMMARY | 2024-04-23 11:15 | XMS_ITS | Clinical Summary ---
Author Organization [facility] Address [address] [place] [address] Care Team Providers Care Health Care Sanitary Technician Name Role Phone Unavailable Primary Care Provider Unavailabl e Source Comments [facility],non-owned Affiliates and Associated Physician Practices is amultiple site organization consisting of ambulatory clinics and hospital sitesin [place], [place], [place] and [place]. This disclosure is being madepursuant to the Care Everywhere program and may not contain all information available regarding this patient. Last updated 17.[facility] Allergies No known active allergies Medications Be [...] Comments Blood Pressure 103/46 04/14/2016 8:15 AM PODOPEDIATRICIAN Pulse 78 04/14/2016 8:15 AM PODOPEDIATRICIAN Temperature 37.1 C (98.8 F) 04/14/2016 8:15 AM PODOPEDIATRICIAN Respiratory Rate 16 04/14/2016 8:15 AM PODOPEDIATRICIAN Oxygen Saturation 98% 04/14/2016 4:45 AM PODOPEDIATRICIAN Inhaled Oxygen Concentration - - Weight 66.8 kg (147 lb 4.3 oz) 04/27/2016 10:19 AM PODOPEDIATRICIAN Height 165.5 cm (5' 5.16 ) 04/12/2016 10:[address] Body Mass Index - - Plan of Treatment Health Maintenance Due Date Last Done Comments PAP SMEAR 2000 HIV SCREENING 07/24/2015 HPV VACCINE (1 - 3-dose series) 07/24/2015 CHLAMYDIA/GONORRHEA SCREENING 2016 MENINGOCOCCAL (Group B) VACC INE (1 of 2 - Standard) 2016 HEPATITIS C SCREENING 07/19/2018 DTAP/TDAP/TD VACCINES (1 - Tdap) 07/24/2019 HEPATITIS B VACCINE (1 of 3 - 19+ 3-dose series) 07/24/2019 COVID-19 VACCINE (1 - 2023-2 5 season) 2023 INFLUENZA VACCINE (#1) 2023 03/31/2005 DEPRESSION SCREENING 03/07/2024 ZOSTER VACCINE (1 of 2) 2050 HIB VACCINE Aged Out No longer eligi ble based on patient's age to complete this topic MENINGOCOCCAL VACCINE Aged Out No bobbi ignacio eligible based on patient's age to complete this topic PNEUMOCOCCAL VACCINE Aged Out No long er eligible based on patient's age to complete this topic Advance Directives * Full Code (Latest Code Status on File) Date Activated Date Inactivated Comments 04/12/2016 11:43 PM 04/14/2016 1:49 PM
--- OUTSIDE RECORDS SUMMARY | 2024-04-23 11:15 | XMS_ITS | Clinical Summary ---
Author Organization [facility] [address] [place] [address] [place] [phone] Care Team Providers Care Radiation Protection Engineer Name Role Phone Margaret Flores NP Primary Care Provider [phone] Allergies No known active allergies Medications No known medications Active Problems Problem Noted Date Diagnosed Date Cervical cancer screening 03/20/2024 Assessment & Plan (03/20/2024 3:42 PM ORNAMENTAL METAL WORKER APPRENTICE): Normal female exam: -Pap smear every .3 [...] disorder) 10/09/2021 12/05/2023 Panic attacks 10/09/2021 12/05/2023 Encounters Date Type Department Care Team Description 04/22/2024 E-Visit [facility] at [address] [phone] Margaret Flores NP Antibiotic 04/18/2024 2:15 PM ORNAMENTAL METAL WORKER APPRENTICE Office Visit [facility] at [address] [phone] Brandy Hoffmann NP Flu-like symptoms (Primary Dx) 04/18/2024 1:57 PM ORNAMENTAL METAL WORKER APPRENTICE - 04/18/2024 11:59 PM ORNAMENTAL METAL WORKER APPRENTICE Hospital Encounter [address] [address] Flu-like symptoms Discharge Disposition: Discharge to home or self care 04/18/2024 Nurse Triage [facility] at [address] [phone] Margaret Flores NP 03/20/2024 3:30 PM ORNAMENTAL METAL WORKER APPRENTICE - 03/20/2024 11:59 PM ORNAMENTAL METAL WORKER APPRENTICE Hospital Encounter [address] [address] Cervical cancer screening Discharge Disposition: Discharge to home or self care 03/20/2024 3:00 PM ORNAMENTAL METAL WORKER APPRENTICE Office Visit [facility] at [address] [phone] Margaret Flores NP Cervical cancer screening (Primary Dx) 01/23/2024 Patient Self-Triage [facility] [address] [place] [phone] Mychart, Generic Provider 01/23/2024 Patient Self-Triage [facility] [address] [place] [phone] Mychart, Generic Provider from Last 3 Months Immunizations Immunization Administration Dates Next Due Influenza, Unspecified 12/05/2023(Deferr ed: Patient Refused),03/07/2023(Deferred: Patient Refused),05/14/2022(Deferred: Patient Refused),03/31/2005 MMR 03/31/2005 Meningococcal Polysaccharide (Menomune) 08/08/2014 Tdap 11/10/2022,08/23/2011 Surgical History Surgery Date Site/Laterality Comments APPENDECTOMY Family History Medical History Relation Name Comments No Known Problems Brother Hypertension Father Hypertension Mother No Known Problems Sister Relation Name Status Comments Brother Alive Father Alive Mother Alive Sister Alive Social History Tobacco Use Types Packs/Day Years [...] on file Legal Sex Female 11:02 PM ORNAMENTAL METAL WORKER APPRENTICE Gender Identity Not on file Sexual Orientation Not on file Obstetrics History Last Filed Vital Signs Vital Sign Reading Time Taken Comments Blood Pressure 116/80 04/18/2024 2:27 PM ORNAMENTAL METAL WORKER APPRENTICE Pulse 88 04/18/2024 2:27 PM ORNAMENTAL METAL WORKER APPRENTICE Temperature 36.8 C (98.3 F) 04/18/2024 2:27 PM ORNAMENTAL METAL WORKER APPRENTICE Respiratory Rate 18 04/18/2024 2:27 PM ORNAMENTAL METAL WORKER APPRENTICE Oxygen Saturation 98% 04/18/2024 2:27 PM ORNAMENTAL METAL WORKER APPRENTICE Inhaled Oxygen Concentration - - Weight 71.8 kg (158 lb 3.2 oz) 04/18/2024 2:27 P M ORNAMENTAL METAL WORKER APPRENTICE Height 167.6 cm (5' 5.98 ) 04/18/2024 2:27 PM CS T Body Mass Index 25.55 04/18/2024 2:27 PM ORNAMENTAL METAL WORKER APPRENTICE Plan of Treatment Health Maintenance Due Date Last Done Comments Hepatitis C Screening 2000 Varicella Vaccines (1 of 2 - 13+ 2-dose series) 2013 HPV Vaccines (1 - 3-dose series) 07/24/2015 Meningococcal B Vaccine (1 of 2 - Standard) 2016 Hepatitis B Screening 2018 Influenza Vaccine (#1) 2023 03/31/2005 Depression Screening 12/04/2024 12/05/2023, 05/14/2022, 10/09/2021, Additional history exists Regular Well Visit/Exam 18-64 12/04/2024 12/05/2023 Cervical Cancer Screening 03/20/2025 03/20/2024 DTaP/Tdap/Td Vaccine (3 - Td or Tdap) 11/10/2032 11/10/2022, 08/23/2011 Pneumococcal vaccine <65 Aged Out No longer eligible based on patient's age to complete this topic Procedures Procedure Name Priority Date/Time Associated Diagnosis Comments POCT RAPID STREP Routine 04/18/2024 2:29 PM ORNAMENTAL METAL WORKER APPRENTICE Flu-like symptoms POC INFLUENZA A/B, COVID-19 ANTIGEN Routine 04/18/2024 2:29 PM ORNAMENTAL METAL WORKER APPRENTICE Flu-like symptoms THROAT CULTURE Routine 04/18/2024 1:57 PM ORNAMENTAL METAL WORKER APPRENTICE Flu-like symptoms INFLUENZA A/B, RSV, AND COVID-19 PCR Routine 04/18/2024 1:57 PM ORNAMENTAL METAL WORKER APPRENTICE Flu-like symptoms THINPREP PROCESSING (MOLECULAR COMPONENT) Routine 03/20/2024 3:30 PM ORNAMENTAL METAL WORKER APPRENTICE Cervical cancer screening N. GONORRHOEAE/C. TRACHOMATIS AMPLIFICATION Routine 03/20/2024 3:30 PM ORNAMENTAL METAL WORKER APPRENTICE Cervical cancer screening PAP WITH REFLEX TO HIGH RISK HPV Routine 03/20/2024 8:28 AM ORNAMENTAL METAL WORKER APPRENTICE Cervical cancer screening from Last 3 Months Results * POC Influenza A/B, COVID-19 antigen (04/18/2024 2:29 PM ORNAMENTAL METAL WORKER APPRENTICE) Influenza A Ag, POC Negative Negative [facility] Influenza B Ag, POC Negative Negative [facility] COVID-19 Ag POC Presumptive Negative Presumptive Negative, Invalid [facility] Nasal 04/18/2024 2:29 PM ORNAMENTAL METAL WORKER APPRENTICE Brandy Hoffmann NP POINT OF CARE TEST ORDERAB LES Final Result [facility] [address] * POCT rapid strep A (04/18/2024 2:29 PM ORNAMENTAL METAL WORKER APPRENTICE) Rapid Strep A, POC Negative Negative Swab 04/18/2024 2:29 PM ORNAMENTAL METAL WORKER APPRENTICE Brandy Hoffmann CHAIR FRAME BUILDER POINT OF CARE TEST ORDERAB LES Final Result * Influenza A/B, RSV, and COVID-19 PCR Nasopharyngeal (04/18/2024 1:57 PM ORNAMENTAL METAL WORKER APPRENTICE) [facility] COVID-19 RNA Negative Negative Influenza A RNA Negative Negative [facility] Influenza B RNA Negative Negative [facility] RSV RNA Negative Negative [facility] Comment: Interpretive data: Testing performed by [facility]. This test is performed using the [employer] Xpert Xpress CoV-2/Flu/RSV plus assay. This is a multiplex, real-time reverse transcriptase PCR assay intended for the qualitative detection of nucleic acid from SARS-CoV-2, influenza A, influenza B, and respiratory syncytial virus. This assay has been cleared by the [place] Food and Drug administration. The performance characteristics have been verified by the [facility]. Results must be considered in the clinical context, and a negative result does not rule out infection. Interpretive Data last revised 2023 Nasopharyngeal 04/18/2024 1: 57 PM ORNAMENTAL METAL WORKER APPRENTICE 04/18/2024 6:15 PM ORNAMENTAL METAL WORKER APPRENTICE Narrative [facility] - 04/18/2024 8:34 PM ORNAMENTAL METAL WORKER APPRENTICE Is the Patient experiencing symptoms consistent with COVID?->Yes Reason for testing?->Symptomatic Is the patient experiencing any symptoms consistent with COVID (eg. Fever, cough, shortness of breath)?->Yes Brandy Hoffmann NP LAB MICROBIOLOGY - GENERAL ORDERABLES Final Result Performing Organization Address City/[facility]/ZIP Co de Phone Number SHAMEKA FIGUEROA [address] Department of Laboratories [place] [id number] [place] * Throat culture Throat (04/18/2024 1:57 PM ORNAMENTAL METAL WORKER APPRENTICE) Report Final Report: No growth of pathogens. Comment:Testing performed by : [facility], [address] [place]., [address] Throat 04/18/2024 1:57 PM ORNAMENTAL METAL WORKER APPRENTICE 04/18/2024 7:55 PM ORNAMENTAL METAL WORKER APPRENTICE Narrative [facility] - 04/19/2024 3:52 PM ORNAMENTAL METAL WORKER APPRENTICE Testing performed by [facility] Microbiology Laboratory ([phone]). Brandy Hoffmann CHAIR FRAME BUILDER LAB MICROBIOLOGY - GENERAL ORDERABLES Final Result Performing Organization Address City/[facility]/ZIP Co de Phone Number [facility] [address] [place] [address] * ThinPrep processing (Molecular component) (03/20/2024 3:30 PM ORNAMENTAL METAL WORKER APPRENTICE) [facility] ThinPrep processing (Molecular component) Specimen received for processing. [facility] Comment:Testing performed by : [facility], [address] [place] [address]., [address] Endocervical 03/20/2024 3:30 PM ORNAMENTAL METAL WORKER APPRENTICE 03/21/2024 5:33 PM ORNAMENTAL METAL WORKER APPRENTICE Margaret Flores NP LAB BODY FLUIDS AND STOOLS ORDER JOESPH Final Result [facility] [address] [place] [address] [facility] * N. gonorrhoeae/C. trachomatis Amplification Thin prep-Endocervical (03/20/2024 3:30 PM ORNAMENTAL METAL WORKER APPRENTICE) Pathologist [facility] C. trachomatis Not Detected [facility] Comment:Testing performed by : [facility], [address] [place] [address], [place]., [address] N. gonorrhoeae Not Detected [facility] Comment: Interpretive Data This assay detects Chlamydia trachomatis and Neisseria gonorrhoeae by nucleic acid amplification testing (NAAT). This assay has been cleared by the [place] Food and Drug administration. The performance characteristics of this test have been verified by the [facility] Molecular Infectious Disease laboratory. The performance characteristics of this test have not been evaluated in individuals less than 14 years of age. Current Interpretive Data was last revised on 2023. Testing performed by: [facility], [address] [place]., [address] Thin prep-Endocervica l (None) 03/20/2024 3:30 PM ORNAMENTAL METAL WORKER APPRENTICE 03/21/2024 5:33 PM ORNAMENTAL METAL WORKER APPRENTICE Margaret Flores NP LAB MICROBIOLOGY - GENERAL ORDER JOESPH Final Result [address] [place] [address] [facility] * Pap with reflex to High Risk HPV and Genotyping (Cytology Component) (03/20/2024 8:28 AM ORNAMENTAL METAL WORKER APPRENTICE) Endocervical (Pap test) 03/20/2024 8:28 AM ORNAMENTAL METAL WORKER APPRENTICE 03/20/2024 8:28 AM ORNAMENTAL METAL WORKER APPRENTICE Narrative PATHOLOGY - 03/22/2024 12:31 PM ORNAMENTAL METAL WORKER APPRENTICE [facility] Department of Pathology [address] [place] [address] Final Report Note to Patients: This report [...] the details. Patient Name: STEPHENIE CRAWFORD Address: [address] [place] [address] [address], [place] [address] Gender: F : 2000 (Age: 23) Service: Location: [facility] #: [id number] Patient Type: SPECIMEN Taken: 03/20/2024 Received: 03/20/2024 Accessioned:: 03/21/2024 Reported: 03/22/2024 Physician(s): Gage Carlton N.P. Diagnosis: SOURCE OF SPECIMEN Imaged Thinprep Pap Test w/ Reflex HPV - Shotblast Operator Cytologic Material: STATEMENT OF ADEQUACY - Specimen satisfactory for interpretation; endocervical/transformation zone component absent or insufficient GENERAL CATEGORIZATION: - Negative for intraepithelial lesion or malignancy FABBY Pelaez(ASCP) Report Electronically Reviewed and Signed Out By FABBY Pelaez(ASCP) 03/22/2024 12:31:53Specimen(s) Received: A: Imaged Thinprep Pap Test w/ Reflex HPV - Shotblast Operator Cytologic Material Clinical History: The Pap test [...] determined by the Surgical Pathology Department at [facility] as part of an ongoing dairy quality assurance officer program and in compliance with federally mandated [...] characteristics determined by the Surgical Pathology Department [facility]. It has not been cleared or approved by the [place]. [place]. Food and Drug Administration. us Margaret Flores NP LAB CYTOLOGY ORDERABLES Final Re sult PATHOLOGY [address] [place] [address] from Last 3 Months [place] Care Teams Radiation Protection Engineer Relationship Specialty Start Date End Date Margaret Flores NP PCP - General Family Medicine 12/05/23
--- OUTSIDE RECORDS SUMMARY | 2024-04-23 11:29 | XMS_ITS | Continuity of Care Document ---
Author Organization [facility] Address [address] [place] [address] Phone Care Team Providers Care Grab Operator Name Role Phone Administrative, Provider Unavailable Unavail able Allergies, Adverse Reactions, Alerts Substance Reaction Status Criticality No Known Allergies Active No Inform ation Medications Medication Instructions Dosage Effective Dates (start - stop) Status Comments ibuprofen 400 mg tablet - Active Procedures Procedure Date Office/outpatient visit,[facility] 2013 Heel Cups Each Advance Directives Directive Yes / No Effective Date File Name No Information Encounters Encounter Description Practice Location Reason(s) For Visit Diagnoses Date Provider Providers Copied on Encounter [facility], [address], [id number], tel:[phone] [facility] No Information 4 Administrati ve Provider. [address] [facility], [address], [place], [place], [id number], [place]. tel:[phone] Office/outpa tient visit,[facility], [address] [place] [address], [place], [place], [id number], [place] tel:[phone] [facility] ankle pain on the left greater than the right (chief complaint) Achilles tendinitisTend onitis of ankle 4 Ayaka Salinas. [facility], [address], [place], [place], [id number], [place]. tel:[phone] Family History Family Member Type Diagnosis Age At Onset Maternal grandfather Problem (finding) Heart trouble Maternal grandmother Problem (finding) hypertension Problem (finding) Family history of hyper tension Maternal grandmother Problem (finding) Heart trouble Maternal grandfather Problem (finding) Diabetes mellit us Payers Payer name Insurance type Covered constitution party ID Saurabh self(s) [facility] [id number] Social History Type Description Quantity Date Captured [...]
== END 2024-04-23 09:40 | disposition home or self-care (01) ==
PROVIDERS: Emergency Provider Emergency Medicine; PCP Nurse Practitioner Family
DX: B34.9 Viral infection, unspecified (principal); Z20.822 Contact with and (suspected) exposure to COVID-19
CPT/HCPCS: 87637; 99283